=== PATIENT | female | born 1995 | race Caucasian/White ===

== ENCOUNTER 2021-08-19 08:00 | Outpatient (RCR) | payer BC, SELFPAY | END 2021-09-24 14:56 | disposition home or self-care (01) | LOC: HO.OT 08:00 | PROVIDERS: PCP Student in an Organized Health Care Education/Training Program; Visit Provider Plastic Surgery | DX: Z98.890 Other specified postprocedural states (principal) | CPT/HCPCS: 97033; 97035; 97110; 97140; 97166 ==

== ENCOUNTER 2024-08-01 22:54 | Emergency (ER) | payer BC, SELFPAY ==
[2024-08-01 23:17] VITALS: BP 145/91; PULSE 107; RESP 16; TEMP 36.8; O2SAT 99; BMI 26.3
--- NOTE | 2024-08-01 23:59 | ED.WOUNDLAC ---
HPI - Wound/Laceration General Chief Complaint: Wound/Laceration Stated Complaint: Finger lac Time Seen by Provider: 08/01/24 23:48 Source: patient Mode of arrival: ambulatory Limitations: no limitations History of Present Illness ED Provider: Dr. Pearl Callahan HPI narrative: patient comes to the emergency room complaining of a laceration to the middle finger of the left hand. Patient states that she was slicing a Bagel and she accidentally cut her finger. Patient denies any other injuries. Patient states that she is up-to-date with the tetanus shot Related Data Allergies Allergy/AdvReac Type Severity Reaction Status Date / Time No Known Allergies Allergy Verified 08/01/24 23:22 Review of Systems Review of Systems: Constitutional : No Weight loss, No Fever, No Chills, No Night Sweats, No Fatigue, No Malaise ENT/Mouth : No Hearing loss, No Ear Pain, No Nasal Congestion, No Sinus Pain, No Hoarseness, No sore throat, No Rhinorrhea, No Swallowing Difficulty Eyes: No Eye Pain, No Swelling, No Redness, No Foreign Body, No Discharge, No Vision Changes Cardiovascular : No Chest Pain, No SOB, No Dyspnea on Exertion, No Orthopnea, No Edema, No Palpitations Respiratory : No Cough, No Sputum, No Wheezing, No Smoke Exposure, No Dyspnea Gastrointestinal : No Nausea, No Vomiting, No Diarrhea, No Constipation, No abdominal Pain, No Hematochezia, No Melena Genitourinary : no irregular bleeding, No Dysuria, No Urinary Frequency, No Hematuria, No Urinary Incontinence, No Urgency, No Flank Pain, No Urinary Flow Changes, No Hesitancy Musculoskeletal : No joint pain, No Myalgias, No Joint Swelling Skin : small laceration to the middle finger of the left hand No Skin Lesions, No rash Neuro : No Weakness, No Numbness, No Paresthesias, No Loss of Consciousness, No Dizziness, No Headache Psych : No Anxiety/Panic, No Depression, No SI/HI/AH/VH, No Social Issues, Heme/Lymph: No Bruising, No Bleeding,No Lymphadenopathy Endocrine : No Polyuria, No Polydipsia, No Temperature Intolerance ON LICENSE OF [facility] Social History Social History Advance Directives: No Advance Directives Information Provided: No Do you have a plan to hurt others: No Plan Physical Exam Vital Signs: Vital Signs: Last Vital Signs Temp 98.3 F 08/01/24 23:17 Pulse 107 H 08/01/24 23:17 Resp 16 08/01/24 23:17 BP 145/91 H 08/01/24 23:17 Pulse Ox 99 08/01/24 23:17 O2 Del Method Room Air 08/01/24 23:17 BMI result Body Mass Index 26.3 Const: Other: Appearance: Alert. Oriented X3. No acute distress. Eyes: Pupils equal, round and reactive to light. ENT: Pharynx normal. Neck: Normal inspection. Neck supple. No lymph nodes noted. No crepitus CVS: Normal heart rate and rhythm. Pulses normal. Normal S1 and S2 Respiratory: No respiratory distress. Breath sounds normal. No Wheezing. No rales Abdomen: Soft and nontender. No rigidity. No distention. Skin: Skin warm and dry. Normal skin color. Normal skin turgor. there is a 0.5 cm laceration to the top of the middle finger on the right hand. Bleeding controlled. Patient went to flex and extend the finger. Extremities: No lower extremity edema. No Lacerations. No Rash Neuro: Oriented X 3. No motor deficit. No sensory deficit. Moving all extremities. No slurred speech. CN 2 through 12 grossly intact Psych: calm, cooperative, normal affect Medical Decision Making Medical Decision Making MDM Narrative: I discussed with the patient that it is very borderline whether she needs stitches or not. Given that the bleeding is control, and the size of the laceration and the depth, it is not worth putting stitches at this time. Patient's finger was thoroughly cleaned, soaked in iodine solution. Exofin Was applied, patient was discharged home. Discharge Plan Discharge Clinical Impression: Laceration Patient Disposition: Home, Self-Care Instructions: Finger Laceration (ED) Additional Instructions: Please follow-up with your primary care physician tomorrow. If you have any worsening or new symptoms, please return to the emergency room or call 911 Print Language: German
[2024-08-02 00:24] VITALS: BP 145/91; PULSE 107; RESP 16; TEMP 36.8; O2SAT 99
== END 2024-08-02 00:10 | disposition home or self-care (01) ==
PROVIDERS: Emergency Provider Emergency Medicine; PCP Student in an Organized Health Care Education/Training Program
DX: S61.213A Laceration without foreign body of left middle finger without damage to nail, initial encounter (principal); W26.0XXA Contact with knife, initial encounter; Y93.89 Activity, other specified; Y92.89 Other specified places as the place of occurrence of the external cause; Y99.8 Other external cause status
CPT/HCPCS: 99283; 99284